=== PATIENT | female | born 1935 | race Caucasian/White ===

== ENCOUNTER → 2017-06-17 | Outpatient (CLI) | payer OTHER ==
[~2017-06-17] MED LIST: DEXAMETHASONE 4 MG/ML VIAL ONE; GLYCOPYRROLATE 0.2 MG/1 ML VIAL ONE; LIDOCAINE 2% 5 ML SDV ONE; ONDANSETRON 4 MG/2 ML VIAL ONE; PHENYLEPHRINE HCL 100 MCG/ML SYR ONE; PROPOFOL 200 MG/20 ML VIAL ONE; ROCURONIUM 50 MG/5 ML VIAL ONE; epHEDrine SULFATE 10 MG/ML SYR ONE; fentaNYL 100 MCG/2 ML INJ ONE
== END ==
LOC: FIMAGING 09:53
PROVIDERS: ATTEND Surgery
DX: E21.0 Primary hyperparathyroidism (principal)
CPT/HCPCS: A9500; J1100; J2370; J2405; J2704; J3010

== ENCOUNTER 2017-06-19 06:31 | Observation (INO) | payer OTHER ==
--- NOTE | 2017-06-17 14:32 | GHP ---
[f rep st] PREOP HISTORY AND PHYSICAL DATE OF ADMISSION: 06/19/2017 HISTORY OF PRESENT ILLNESS: The patient is an 82-year-old female, who has been referred to us by her primary care provider and cane burner for parathyroidectomy for primary hyperparathyroidism. The patient has been hypercalcemic, measured at 11.1 on 05/07/2017. Labs at the same time showed a parathyroid hormone of 82 and a vitamin D level within normal range at 31.7. She has osteoporosis and also declining renal function in the face of hypercalcemia. She is not thought to have secondary hyperparathyroidism. She has yet to get a nuclear medicine sestamibi parathyroid scan. Per report, she has had some abnormal labs for about 2 years now. The patient does report recurring nocturia but denies renal lithiasis. She reports some muscle weakness and is now using a walker. She does have osteoporosis and luckily a recent fall with no fracture. She denies abdominal discomfort and confusion. HPI includes nighttime urination, muscle weakness. PAST MEDICAL HISTORY: Primary hyperparathyroidism as described above. Also, dementia, osteoporosis, hypertension, hyperlipidemia, and falls. MEDICATIONS: Amlodipine, gabapentin, pramipexole, denosumab, donepezil, Percocet as needed, and iron. ALLERGIES: Latex. SOCIAL HISTORY: Patient is . She is a nondrinker and nonsmoker. She is retired and has 4 adult children. REVIEW OF SYSTEMS: 10-point review of systems is done. Please see HPI. PHYSICAL EXAMINATION: GENERAL APPEARANCE: An 82-year-old female, alert and oriented x3 and in no acute distress. HEENT: Normocephalic, atraumatic. Pupils equal and round. NECK: Supple. No obvious lymphadenopathy or neck masses. No thyromegaly. CHEST: Clear to auscultation bilaterally. CARDIAC: Regular rate and rhythm. ABDOMEN: Soft, nontender. EXTREMITIES: Warm and dry. IMPRESSION: This is an 82-year-old female with hypercalcemia, elevated PTH, osteoporosis, and renal decline, thought to have primary hyperparathyroidism. PLAN: To proceed with parathyroidectomy. She will also be getting a nuclear medicine sestamibi parathyroid scan prior to her surgery. Even if this is inconclusive, we will still plan to proceed with surgery as she has enough to indicate primary hyperparathyroidism. If it is positive, it will help with the surgery. Risks and options have been discussed including, but not limited to, bleeding, infection, injury to nerve, hoarse or loss of voice, failure to find adenoma, hypocalcemia, hypoparathyroidism, thyroid injury, damage to surrounding structures, ectopic parathyroid, and other problems, and she requests to proceed. /[id number]/MODL MTDD
[2017-06-19] MEDS ORDERED: ceFAZolin 2 GM/DEXTROSE 100 ML IV ONE (06:55)
[2017-06-19] MEDS ORDERED: LR 1,000 ML IV ONE (06:56)
[2017-06-19] MEDS ORDERED: LIDOCAINE 1% 2 ML INJ ID PRN (06:56)
[2017-06-19] MEDS ORDERED: LIDOCAINE 1% 2 ML INJ ONE (07:02)
[2017-06-19] MEDS ORDERED: BUPIVACAINE/EPI 0.5% 30 ML SDV ONE ×3 (07:24→11:09)
[2017-06-19] MEDS ORDERED: THROMBIN (BOVINE) 5,000 UNIT VIAL TP ONE (07:24)
[2017-06-19] MEDS ORDERED: BACITRACIN ZINC 14.2 GM OINTTUBE TP ONE (07:24)
--- NOTE | 2017-06-19 07:29 | PDHPUP ---
History & Physical Update H&P update statement: This history and physical update is based on an assessment of the patient which was completed after admission or registration (within 24 hours), but prior to the surgery/procedure. H&P update: H&P reviewed & patient examined, no change in patient's condition since H&P completed
--- NOTE | 2017-06-19 07:35 | CPEKG ---
Heart Rate: 50 RR Interval: 1200 P-R Interval: 224 QRSD Interval: 136 QT Interval: 516 QTC Interval: 471 P [place]: 63 QRS [place]: 14 T Wave [place]: 82 EKG Severity - ABNORMAL ECG - EKG Impression: SINUS RHYTHM EKG Impression: FIRST DEGREE AV BLOCK EKG Impression: LEFT BUNDLE BRANCH BLOCK Electronically Signed By: Pan Taylor 22-Jun-2017 08:24:28
--- NOTE | 2017-06-19 10:05 | PDANEPAE ---
ANE Past Medical History - Cardiovascular History Hx Hypertension: Yes Hx Arrhythmias: No Hx Chest Pain: No Hx Coronary Artery / Peripheral Vascular Disease: No Hx CHF / Valvular Disease: No Hx Palpitations: No - Pulmonary History Hx COPD: No Hx Asthma/Reactive Airway Disease: No Hx Recent Upper Respiratory Infection: No Hx Oxygen in Use at Home: No Hx Sleep Apnea: No Sleep Apnea Screening Result - Last Documented: Negative - Neurologic History Hx Cerebrovascular Accident: No Hx Seizures: No Hx Dementia: Yes Neurologic History Comment: ALZHEIMERS - Endocrine History Hx Diabetes: No Obesity: no Endocrine History Comment: HYPERPARATHYROIDISM - Renal History Hx Renal Disorders: Yes Renal History Comment: DECREASED KIDNEY FUNCTION - Liver History Hx Hepatic Disorders: No - Neurological & Psychiatric Hx Hx Neurological and Psychiatric Disorders: No - Cancer History Hx Cancer: No - Congenital Disorder History Hx Congenital Disorders: No - GI History GERD: no Hx Gastrointestinal Disorders: Yes Gastrointestinal History Comment: IBS - Other Health History Other Health History: MACULAR DEGENERATION - Surgical History Prior Surgeries: BREAST IMPLANTS 40 YEARS AGO ANE Review of Systems - Exercise capacity METS (RN): 2 METS ANE Patient History - Allergies Allergies/Adverse Reactions: latex Allergy (Mild, Verified 06/18/17 17:09) - Home Medications Home Medications: Aricept DAILY 06/18/17 [Last Taken 06/18/17] Denosumab 06/18/17 [Last Taken 06/18/17] GABAPENTIN BID 06/18/17 [Last Taken 06/18/17] Lisinopril DAILY 06/18/17 [Last Taken 06/18/17] Percocet 5-325 mg Tablet PRN 06/18/17 [Last Taken 06/18/17] Pramipexole Di-HCl PRN 06/18/17 [Last Taken 06/14/17] amLODIPine BESYLATE PO DAILY 06/18/17 [Last Taken 06/18/17] - NPO status NPO Since - Liquids (Date): 06/18/17 NPO Since - Liquids (Time): 22:00 NPO Since - Solids (Date): 06/18/17 NPO Since - Solids (Time): 22:00 - Anes Hx Anes Hx: no prior problems - Smoking Hx Smoking Status: Former smoker - Alcohol Use Alcohol Use: None - Family Anes Hx Family Anes Hx: neg - N/A Family Hx Anesthesia Complications: NEG ANE Labs/Vital Signs - Vital Signs Blood Pressure: 175/81 Heart Rate: 54 Respiratory Rate: 16 O2 Sat (%): 95 Height: 167.64 cm Weight: 56.699 kg ANE Physical Exam - Airway Neck exam: decreased ROM Mallampati Score: Class 2 Mouth exam: dentures - Pulmonary Pulmonary: no respiratory distress, no rales or rhonchi, clear to auscultation - Cardiovascular Cardiovascular: regular rate and rhythym - ASA Status ASA Status: III (b/l carotid bruit (R>L)) ANE Anesthesia Plan Anesthesia Plan: general endotracheal anesthesia
[2017-06-19 10:43] LABS: ANION GAP 11 mEq/L (8-16); CALCIUM 11.3 mg/dL (8.5-10.4); CARBON DIOXIDE 23 mEq/l (22-31); CHLORIDE 102 mEq/L (97-110); CREATININE 1.7 mg/dL (0.6-1.0); GLOMERULAR FILTRATION RATE 29; GLUCOSE 87 mg/dL (70-100); POTASSIUM 4.6 mEq/L (3.5-5.2); SODIUM 136 mEq/L (134-144)
[2017-06-19] MEDS ORDERED: MEPERIDINE 25 MG/ML SYR IVP PRN (12:32)
[2017-06-19] MEDS ORDERED: ACETAMINOPHEN 500 MG TAB PO PRN (12:32)
[2017-06-19] MEDS ORDERED: OXYCODONE/APAP 5/325 TAB PO PRN (12:32)
[2017-06-19] MEDS ORDERED: ONDANSETRON 4 MG/2 ML VIAL IVP PRN ×2 (12:32→14:39)
[2017-06-19] MEDS ORDERED: D5W LR 500 ML IV PRN (12:32)
[2017-06-19] MEDS ORDERED: HYDROCODONE/APAP 5/325 TAB PO PRN (12:32)
[2017-06-19] MEDS ORDERED: NALOXONE HCL 0.4 MG/ML INJ IVP PRN (12:32)
[2017-06-19] MEDS ORDERED: DIAZEPAM 10 MG/2 ML SYR IVP PRN (14:24)
--- NOTE | 2017-06-19 14:27 | POSTANESTH ---
Post Anesthetic Evaluation Cardiovascular Status: Normal, Stable Respiratory Status: Normal, Stable Level of Consciousness/Mental Status: Can Participate in Eval, Other, See Comment Pain Control: Adequate, Prn Tx Ordered Nausea/Vomiting Control: Adequate, Prn Tx Ordered Complications Possibly Related to Anesthesia: None Noted (baseline dementia difficult to accurately assess mental status)
[2017-06-19] MEDS ORDERED: DIAZEPAM 10 MG/2 ML SYR ONE (14:32)
--- NOTE | 2017-06-19 14:38 | POSTOPPROG ---
Post Op Note Date of Operation: 06/19/17 Surgeon: Magdy Rosa Sander And Buffer: jun Anesthesiologist: alexandra Anesthesia: GET(General Endotracheal) Pre-op Diagnosis: hyperparathyroidism Post-op Diagnosis: same Indication: hypercalcemia/ crf/ stones Procedure: parathyroidectomy with removal adenoma and thyroid bx Findings: adenoma on rt asosiated with thymic horn 110gms/ pth doen to 15 from 117 Inf/Abcess present in the surg proc area at time of surgery?: No Depth: Organ Space EBL: Minimal Complications: 0 Specimen(s): 2 parathyroid masses/ thyroid nodule left lobe
[2017-06-19] MEDS ORDERED: HYDROmorphONE/DILAUDID 1 MG/ML SYR IVP PRN (14:39)
[2017-06-19] MEDS ORDERED: fentaNYL 100 MCG/2 ML INJ ONE (14:42)
[2017-06-19] MEDS: fentaNYL 100 MCG/2 ML INJ IVP PRN ×2 (14:43→14:48)
[2017-06-19] MEDS ORDERED: HYDROCODONE/APAP 5/325 TAB ONE (14:48)
[2017-06-19] MEDS: D5W 1/2 NS W/ 20 KCl/L 1,000 ML IV SCH (17:12)
[2017-06-19] MEDS: HYDROCODONE/APAP 5/325 TAB PO PRN ×2 (19:21→23:33)
[2017-06-20] MEDS: HYDROCODONE/APAP 5/325 TAB PO PRN ×2 (03:48→11:06)
[2017-06-20] MEDS: D5W 1/2 NS W/ 20 KCl/L 1,000 ML IV SCH (03:53)
--- NOTE | 2017-06-20 10:52 | PDDCSUM ---
Discharge Summary Discharge Summary: DISCHARGE SUMMARY Date of Admission June 19 Date of Discharge June 20 DISCHARGE DIAGNOSES -hyperparathyroidism status post parathyroidectomy HOSPITAL COURSE The patient was admitted after undergoing uneventful parathyroidectomy for adenoma. She was taken 1st to the postanesthesia unit and then to the general medical floor. Her pain is well controlled, she was tolerating a regular diet and was discharged home in stable condition on the morning of the DISCHARGE MEDICATIONS All home medications were reconciled in restarted, [place] was added as needed for pain DISPOSITION Home FOLLOW UP Follow up with Dr. Rosa in the office in 10-14 days for a general post- operative visit
[2017-06-20 11:31] VITALS: BP 138/49; PULSE 59; RESP 20; TEMP 97.7; O2SAT 93
--- NOTE | 2017-06-20 11:54 | PDIAF ---
- Diagnosis Diagnosis: hyperparathyroidism Code Status: Full Code - Medication Management Discharge Medications: Medications to Continue on Transfer Amlodipine Besylate 10 mg PO DAILY 06/19/17 [Last Taken Unknown] Donepezil HCl 10 mg PO HS 06/19/17 [Last Taken Unknown] Gabapentin 100 mg PO BID 06/19/17 [Last Taken Unknown] Herbals/Supplements -Info Only 1 ea PO DAILY 06/19/17 [Last Taken Unknown] Lisinopril 40 mg PO DAILY 06/19/17 [Last Taken Unknown] Pramipexole Di-HCl [Pramipexole Dihydrochloride] 0.25 mg PO HS PRN 06/19/17 [ Last Taken Unknown] oxyCODONE HCL/ACETAMINOPHEN [Percocet 10-325 mg Tablet] 1 each PO QID PRN [Last Taken Unknown] Hydrocodone/APAP 5/325 [Lowgap 5/325 (*)] 1 - 2 tab PO Q4 PRN #12 tab 06/20/17 [ Last Taken Unknown] Discharge Medications: Refer to the Discharge Home Medication list for PRN reason. - Orders Services needed: Physical Therapy, Occupational Therapy Diet Recommendation: no restrictions on diet Diet Texture: Regular Texture Diet - Follow Up Care Current Providers and Referrals: Marilou Pedraza MD [Primary Care Provider] - Magdy Rosa MD [Medical Doctor] - follow up in 10 days
== END 2017-06-20 13:41 | disposition home or self-care (01) ==
LOC: F3N 06:31 → F3E 15:16
PROVIDERS: ADMIT Surgery; ATTEND Surgery
PROC: 0GBR0ZX Excision of Parathyroid Gland, Open Approach, Diagnostic (ICD-10-PCS; principal; 2017-06-19 08:30)
PROC: 0GBG0ZX Excision of Left Thyroid Gland Lobe, Open Approach, Diagnostic (ICD-10-PCS; principal; 2017-06-19 08:30)
DX: E21.3 Hyperparathyroidism, unspecified (principal); D35.1 Benign neoplasm of parathyroid gland; D34 Benign neoplasm of thyroid gland; M81.0 Age-related osteoporosis without current pathological fracture; F03.90 Unspecified dementia, unspecified severity, without behavioral disturbance, psychotic disturbance, mood disturbance, and anxiety; I10 Essential (primary) hypertension; E78.5 Hyperlipidemia, unspecified; R29.6 Repeated falls; N28.9 Disorder of kidney and ureter, unspecified; I44.7 Left bundle-branch block, unspecified; Z87.442 Personal history of urinary calculi
CPT/HCPCS: 60200; 60500; 93005; 97161; G0378; G8978; G8979; G8980; J0690; J3010

== ENCOUNTER → 2018-03-26 | Outpatient (CLI) | payer OTHER ==
[~2018-03-26] MED LIST changes: -DEXAMETHASONE 4 MG/ML VIAL ONE; -GLYCOPYRROLATE 0.2 MG/1 ML VIAL ONE; +IOPAMIDOL (ISOVUE-300) 100 ML BTL ONE; -LIDOCAINE 2% 5 ML SDV ONE; -ONDANSETRON 4 MG/2 ML VIAL ONE; -PHENYLEPHRINE HCL 100 MCG/ML SYR ONE; -PROPOFOL 200 MG/20 ML VIAL ONE; -ROCURONIUM 50 MG/5 ML VIAL ONE; -epHEDrine SULFATE 10 MG/ML SYR ONE; -fentaNYL 100 MCG/2 ML INJ ONE
== END ==
LOC: CIMAGING 11:25
PROVIDERS: ATTEND Internal Medicine
DX: N28.89 Other specified disorders of kidney and ureter (principal); Z53.09 Procedure and treatment not carried out because of other contraindication
CPT/HCPCS: 74170-PO; Q9967

== ENCOUNTER 2018-04-23 10:02 | Day surgery (SDC) | payer OTHER ==
[2018-04-23] MEDS ORDERED: hydrALAZINE 20 MG/ML VIAL IVP PRN (10:13)
[2018-04-23] MEDS ORDERED: MEPERIDINE 25 MG/ML SYR IVP PRN (10:13)
[2018-04-23] MEDS ORDERED: MIDAZOLAM 2 MG/2 ML VIAL IVP PRN (10:13)
[2018-04-23] MEDS ORDERED: NALOXONE HCL 0.4 MG/ML INJ IVP PRN (10:13)
[2018-04-23] MEDS ORDERED: fentaNYL 100 MCG/2 ML INJ IVP PRN (10:13)
[2018-04-23] MEDS ORDERED: GLUCAGON HCL 1 MG VIAL IVP PRN (10:13)
[2018-04-23] MEDS ORDERED: FLUMAZENIL 0.5 MG/5 ML MDV IVP PRN (10:13)
[2018-04-23] MEDS ORDERED: ALTEPLASE 2 MG VIAL IVP PRN (10:13)
[2018-04-23] MEDS ORDERED: HEPARIN 10,000 UNIT/10 ML MDV (1,000 UNIT/ML) IVP PRN (10:13)
[2018-04-23] MEDS ORDERED: PROTAMINE SULFATE 50 MG/5 ML VIAL IVP PRN (10:13)
[2018-04-23] MEDS ORDERED: NS 1,000 ML IV SCH (10:15)
--- NOTE | 2018-04-23 10:56 | PDPROPOC ---
Sedation Plan of Care Sedation Plan of Care: vital signs stable, mental status noted, patient educated of risks, benefits, alternatives, patient can tolerate sedation ASA Classification: ASA 3 Planned drugs: fentanyl, midazolam Mallampati Score: Class 2 Mallampati Reference Image: Patient passed 3-3-2 rule?: Yes
--- NOTE | 2018-04-23 10:59 | PDGENHP ---
History & Physical Chief Complaint: RT RENAL MASS History of Present Illness: MASS WAS INCIDENTALLY FOUND DURING WORK UP FOR VOMITTING. Pertinent Past, Social, Family History: SURPORTIVE FAMILY WITH DAUGHTER SIGNING CONSENTS. NONSMOKER. Relevant Physical Exam: CHATTY. IN NO DISCOMFORT. Cardiorespiratory Assessment: RRR, CTA
[2018-04-23 11:17] LABS: PLATELET COUNT 468 10^3/uL (150-400)
[2018-04-23 11:26] LABS: PROTIME(PATIENT) 13.4 SEC (12.0-15.0)
[2018-04-23] MEDS ORDERED: LIDOCAINE 1% 300 MG/30 ML SDV ONE (11:26)
[2018-04-23] MEDS ORDERED: IOPAMIDOL (ISOVUE-300) 100 ML BTL ONE (11:46)
[2018-04-23] MEDS ORDERED: ACETAMINOPHEN 325 MG TAB PO PRN (12:18)
[2018-04-23] MEDS ORDERED: OXYCODONE/APAP 5/325 TAB PO PRN (12:18)
[2018-04-23] MEDS ORDERED: ONDANSETRON 4 MG/2 ML VIAL IVP PRN (12:18)
--- NOTE | 2018-04-23 12:18 | PDRADPN ---
Radiology Procedure Note Date of Procedure: 04/23/18 Radiologist: Meena Zamudio Anesthesia: IV Sedation Pre-op Diagnosis: rt renal mass Post-op Diagnosis: same Indication: needs tissue diagnosis Procedure: CT guided biopsy and faducial placement Finding(s): samples obtained; faducial deployed towards medial end of mass. Inf/Abcess present in the surg proc area at time of surgery?: No
[2018-04-23 17:11] VITALS: BP 139/71
== END 2018-04-23 16:46 | disposition home or self-care (01) ==
LOC: FIMAGING 10:02
PROVIDERS: ATTEND Specialist
PROC: 0TB03ZX Excision of Right Kidney, Percutaneous Approach, Diagnostic (ICD-10-PCS; principal; 2018-04-23 12:26)
PROC: 0TH53YZ Insertion of Other Device into Kidney, Percutaneous Approach (ICD-10-PCS; principal; 2018-04-23 12:26)
DX: E78.00 Pure hypercholesterolemia, unspecified (principal); I10 Essential (primary) hypertension; G30.9 Alzheimer's disease, unspecified; F02.80 Dementia in other diseases classified elsewhere, unspecified severity, without behavioral disturbance, psychotic disturbance, mood disturbance, and anxiety
CPT/HCPCS: 88184-90; 88185-91; J2250; J2310; J3010; Q9967

== ENCOUNTER 2018-08-24 16:22 | Observation (INO) | payer OTHER ==
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
[2018-08-24] MEDS ORDERED: NS 1,000 ML IV ONE ×2 (16:51→17:59)
[2018-08-24] MEDS ORDERED: fentaNYL 100 MCG/2 ML INJ IVP ONE (16:51)
--- NOTE | 2018-08-24 16:55 | CPEKG ---
Test Reason : OPEN Blood Pressure : / mmHG Vent. Rate : 079 BPM Atrial Rate : 079 BPM P-R Int : 208 ms QRS Dur : 133 ms QT Int : 450 ms P-R-T Axes : 064 019 087 degrees QTc Int : 517 ms Sinus rhythm Left bundle branch block Confirmed by Malik Freitas ([id number]) on 08/24/2018 4:54:37 PM Referred By: Confirmed By:Malik Freitas
[2018-08-24 16:59] LABS: PLATELET COUNT 707 10^3/uL (150-400)
[2018-08-24] MEDS ORDERED: Herbals/Supplements -Info Only PO PRN (18:39)
[2018-08-24] MEDS ORDERED: PRAMIPEXOLE 0.125 MG TAB PO PRN (18:39)
[2018-08-24] MEDS ORDERED: ACETAMINOPHEN 325 MG TAB PO PRN (18:41)
[2018-08-24] MEDS ORDERED: ONDANSETRON DISINTEGRATING 4 MG TAB PO PRN (18:41)
[2018-08-24] MEDS ORDERED: PROMETHAZINE HCL 25 MG/ML INJ IVP PRN (18:41)
[2018-08-24] MEDS ORDERED: ONDANSETRON 4 MG/2 ML VIAL IVP PRN (18:41)
--- NOTE | 2018-08-24 19:48 | GHP ---
DATE OF ADMISSION: 08/24/2018 This is an 83-year-old female with history of chronic pain on continuous narcotics, as well as reg ia and hypertension, who has had some recent GI complaints. She was admitted to [facility] with some abdominal pain and she had a CT scan at that time. Her daughter believes it showed duo denitis. She has also had intermittent diarrhea. She has not had fever or chills. Has had poor p.o . intake. She comes in today complaining of abdominal pain. She denies vomiting. She has had some nausea. In speaking with her daughter, she suspects that her mother has unfettered access to NSAIDs and may be taking a fair amount of ibuprofen. She has not had melena or bright red blood per rectum. The patient does have some dementia and does not manage her own medicines. She lives in [facility] w ith her . She does not smoke cigarettes or drink alcohol. She relocated to the [place] area a number of years ago to be near her daughter's family. REVIEW OF SYSTEMS: Complete 10-point review of systems conducted, negative except as noted in the HP I. ALLERGIES: Latex. MEDICATIONS: Iron, lisinopril, omeprazole, amlodipine, calcium carbonate with vitamin D, donepezil, gabapentin, Percocet and pramipexole. SOCIAL HISTORY: No tobacco, no alcohol. FAMILY HISTORY: Parents . PHYSICAL EXAMINATION: VITAL SIGNS: Temperature 37, blood pressure 173/91, pulse 81, breathing 18 janeth es a minute, 97% on room air. GENERAL: No acute distress. HEENT: Sclerae anicteric. Oropharynx clear . Mucous membranes moist. NECK: Supple without lymphadenopathy or JVD. LUNGS: Clear to auscultation bilaterally. HEART: S1, S2. ABDOMEN: Soft, nontender, nondistended. There is no rebound or guardin g. LOWER EXTREMITIES: Without edema. Calves nontender. SKIN: Without rash. NEUROLOGIC: Exam is non focal. LABORATORY STUDIES: White count 16, hematocrit 38, MCV 86, platelets 707,000. Sodium 136, potassium 4.2, chloride 101, bicarb 18, BUN 19, creatinine 1.3. Baseline is about 1.3. Glucose 154. LFTs no rmal. Lipase 309. CT scan of the abdomen, images reviewed and interpreted by me shows duodenitis, l arge hiatal hernia. There is also a hypodense nodule in the right renal apex. I discussed the case with Dr. Robin Fuentes. EKG shows sinus rhythm, left bundle branch block pattern . Left bundle branch block pattern is not new. ASSESSMENT/PLAN: An 83-year-old female with abdominal pain, duodenitis. 1. Duodenitis. I suspect this is from surreptitious NSAID use given the chronic pain. I put her on a twice daily IV PPI. Gastroenterology will see her in the morning. I have made her n.p.o. past ak dnight for possible upper endoscopy. 2. There are no signs of acute bleeding at this time. I have also written for some simethicone p.r. n. 3. Diarrhea. It appears to be of a chronic nature. I have written for a GI pathogen panel to rule out enteric pathogens such as Clostridium difficile colitis. I have a low suspicion for this however . She may benefit from colonoscopy. I will leave that to the discretion of the multicultural internship. 4. Hypertension. She is markedly hypertensive in the emergency department to 202/101. We will foll ow. We will give her Norvasc tonight. 5. Chronic pain. She takes a number of Percocet daily. We will continue for now. I will not write her for IV narcotics. 6. Nausea. Continue IV nausea medicine. 7. Disposition: Inpatient status. Code status full at this time. /[id number]/MODL
[2018-08-24] MEDS: NS 1,000 ML IV SCH (19:51)
[2018-08-24] MEDS: OXYCODONE/APAP 5/325 TAB PO PRN (20:07)
[2018-08-24] MEDS: oxyCODONE IR 5 MG TAB PO PRN (20:07)
[2018-08-24] MEDS: PANTOPRAZOLE SODIUM 40 MG VIAL IVP SCH (20:07)
[2018-08-24] MEDS: SIMETHICONE 80 MG TAB CHEW PO SCH ×3 (20:07→20:12)
[2018-08-24] MEDS: DONEPEZIL HCL 5 MG TAB PO SCH (20:08)
[2018-08-24] MEDS ORDERED: ZOLPIDEM TARTRATE 5 MG TAB PO ONE (21:00)
[2018-08-24] MEDS: GABAPENTIN 100 MG CAP PO SCH (21:20)
[2018-08-25] MEDS: NS 1,000 ML IV SCH ×2 (05:17→18:03)
[2018-08-25 05:37] LABS: PLATELET COUNT 512 10^3/uL (150-400)
[2018-08-25] MEDS: oxyCODONE IR 5 MG TAB PO PRN (08:08)
[2018-08-25] MEDS: CHOLECALCIFEROL VIT D3 1,000 UNITS TAB PO SCH (08:10)
[2018-08-25] MEDS: OXYCODONE/APAP 5/325 TAB PO PRN (08:10)
[2018-08-25] MEDS: SIMETHICONE 80 MG TAB CHEW PO SCH ×4 (08:13→21:03)
[2018-08-25] MEDS: GABAPENTIN 100 MG CAP PO SCH ×3 (08:13→21:04)
[2018-08-25] MEDS: PANTOPRAZOLE SODIUM 40 MG VIAL IVP SCH ×3 (08:13→21:04)
[2018-08-25] MEDS: CALCIUM CARB W/VIT D 500 MG TAB PO SCH (08:13)
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
--- NOTE | 2018-08-25 11:31 | ASMTCMCOM ---
CM Note CM Note Notes: Spoke with pt, pt's RN and dtr in the room. Pt lives independently with , and per daughter the home is well set up for aging in place safely. Pt admitted for abd pain and diarrhea, to have EGD today. OT recommending home independently. PT still to evaluate. Likely home independently. CM to follow. D/C Plan: Home independently. Date Signed: 08/25/2018 11:31 AM Electronically Signed By:Erika Jackson
[2018-08-25] MEDS ORDERED: LR 1,000 ML IV ONE (13:22)
[2018-08-25] MEDS ORDERED: PROPOFOL 200 MG/20 ML VIAL ONE ×2 (13:49→13:50)
--- NOTE | 2018-08-25 14:00 | PDANEPAE ---
ANE Past Medical History - Cardiovascular History Hx Hypertension: Yes Hx Arrhythmias: No Hx Chest Pain: No Hx Coronary Artery / Peripheral Vascular Disease: No Hx CHF / Valvular Disease: No Hx Palpitations: No Cardiovascular History Comment: heart murmur - Pulmonary History Hx COPD: No Hx Asthma/Reactive Airway Disease: No Hx Recent Upper Respiratory Infection: No Hx Oxygen in Use at Home: No Hx Sleep Apnea: No Sleep Apnea Screening Result - Last Documented: Negative - Neurologic History Hx Cerebrovascular Accident: No Hx Seizures: No Hx Dementia: Yes Neurologic History Comment: ALZHEIMERS - Endocrine History Hx Diabetes: No Endocrine History Comment: HYPERPARATHYROIDISM - Renal History Hx Renal Disorders: Yes Renal History Comment: DECREASED KIDNEY FUNCTION - Liver History Hx Hepatic Disorders: No - Neurological & Psychiatric Hx Hx Neurological and Psychiatric Disorders: No - Cancer History Hx Cancer: No - Congenital Disorder History Hx Congenital Disorders: No - GI History Hx Gastrointestinal Disorders: Yes Gastrointestinal History Comment: IBS - Other Health History Other Health History: MACULAR DEGENERATION. scoliosis. degerative disc disease - Chronic Pain History Chronic Pain: Yes (back) - Surgical History Prior Surgeries: BREAST IMPLANTS 40 YEARS AGO;. T&A; mulitple teeth extraction ; thyroidectomy; cataract surgery b/l &01/2018 ANE Review of Systems Review of Systems: ANE Patient History - Allergies Allergies/Adverse Reactions: latex Allergy (Mild, Verified 04/20/18 14:13) - Home Medications Home Medications: Calcium Carbonate/Vitamin D3 [CALCIUM 600 + VIT D TABLET] 1 each PO DAILY [Last Taken 08/24/18] Cholecalciferol Vit D3 [Vitamin D3 (*)] 1,000 units PO DAILY 08/24/18 [Last Taken 08/24/18] Donepezil HCl 10 mg PO HS 08/24/18 [Last Taken 08/23/18] Ferrous Sulfate [Ferrous Sulf 325 MG (*)] 325 mg PO TID 08/24/18 [Last Taken am dose only] Gabapentin [Neurontin 100 MG (*)] 100 mg PO TID 08/24/18 [Last Taken 08/24/18 am dose only] Herbals/Supplements -Info Only 1 ea PO QID PRN 08/24/18 [Last Taken Unknown] Lisinopril [Zestril 40 mg (*)] 40 mg PO DAILY 08/24/18 [Last Taken 08/24/18] Omeprazole 20 mg PO DAILY 08/24/18 [Last Taken 08/24/18] Pramipexole Di-HCl [Mirapex 0.125 mg (*)] 0.125 - 0.375 mg PO HS PRN 08/24/18 [ Last Taken Unknown] amLODIPine BESYLATE [Norvasc 10 mg (*)] 10 mg PO DAILY 08/24/18 [Last Taken ] oxyCODONE HCL/ACETAMINOPHEN [Oxycodone-Acetaminophen 10-325] 1 each PO TID PRN 08/24/18 [Last Taken Unknown] - NPO status NPO Since - Liquids (Date): 08/25/18 NPO Since - Liquids (Time): 00:00 NPO Since - Solids (Date): 08/25/18 NPO Since - Solids (Time): 00:00 - Smoking Hx Smoking Status: Never smoked - Family Anes Hx Family Hx Anesthesia Complications: NEG ANE Labs/Vital Signs - Labs Result Diagrams: 08/25/18 04:44 08/25/18 04:44 - Vital Signs Blood Pressure: 147/67 Heart Rate: 55 Respiratory Rate: 16 O2 Sat (%): 95 Height: 165.1 cm Weight: 55.111 kg ANE Physical Exam - Airway Neck exam: FROM Mallampati Score: Class 2 Mouth exam: normal dental/mouth exam - Pulmonary Pulmonary: no respiratory distress - Cardiovascular Cardiovascular: regular rate and rhythym - ASA Status ASA Status: II ANE Anesthesia Plan Anesthesia Plan: GA with mask
--- NOTE | 2018-08-25 14:21 | GIREPORT ---
[facility] Surgical Services - Endoscopy Department Patient Name: Laila Bruno Procedure Date: 08/25/2018 11:30 AM Patient Type: Inpatient Attending MD/ ER Physician: Reyes Ac MD Procedure: Upper GI endoscopy Indications: Epigastric abdominal pain, Nausea with vomiting Providers: Reyes Ac MD Medicines: Propofol per Anesthesia Complications: No immediate complications. Description of Procedure: After obtaining informed consent, the endoscope was passed under direct vision. Throughout the procedure, the patient's blood pressure, pulse, and oxygen saturations were monitored continuously. The Endoscope was intro duced through the mouth, and advanced to the second part of duodenum. The [facility] er GI endoscopy was accomplished without difficulty. The patient tolerated th e procedure well. Findings: One benign-appearing, intrinsic stenosis was found at the gastroesophag eal junction. This stenosis was mildly severe and measured 1.2 cm (inner diameter) x 1 cm (in length). The stenosis was traversed. Biopsies were taken with a cold forceps for histology. The stomach was normal. One partially obstructing non-bleeding cratered duodenal ulcer with no stigmata of bleeding was found in the first portion of the duodenum. Th e ulcer bed is deep with visualization of underlying connective tissue. T he lesion was 15 mm in largest dimension. There is no evidence of perforat ion but the ulcer appears very deep. This area was successfully traversed w ith the endoscope with gentle manipulation. Biopsies were taken with a cold forceps for histology. The second portion of the duodenum was normal. Estimated Blood Loss: Estimated blood loss was minimal. Post Op Diagnosis: - Benign-appearing esophageal stenosis. Biopsied. - Normal stomach. - One partially obstructing, deep and non-bleeding duodenal ulcer with no stigmata of bleeding. NSAID induced etiology. There is no evidence of perforation. Biopsied. - Normal second portion of the duodenum. Recommendation: - Await pathology results. - Give Protonix (pantoprazole): initiate therapy with 80 mg IV bolus, t hen 8 mg/hr IV by continuous infusion. - Mechanical soft diet. - Repeat upper endoscopy in 6 weeks to check healing. - No aspirin, ibuprofen, naproxen, or other non-steroidal anti-inflamma tory drugs. - Refer to a surgeon if her abdominal pain persists or she can not tole rate oral intake. - [facility]. Attending Participation: I personally performed the entire procedure without the assistance of a fellow, resident or surg ical interior design assistant. Reyes Ac MD Reyes Ac MD 08/25/2018 2:20:50 PM This report has been signed electronicallyDavid MD Osorio Number of Addenda: 0 Note Initiated On: 08/25/2018 11:30 AM [email or web address]
--- NOTE | 2018-08-25 14:36 | HOSPPROG ---
Hospitalist Progress Note Assessment/Plan: 83y female with c/o abd pain. First encounter, chart reviewed. #Duodenitis -related to NSAIDS -EGD today, shows ulcer, D/W Dr Ac -DC NSAIDS, pt states she takes for pain. #Chronic narcotic use with conts opiods -D/W daughter -would like to try to titrate off percecet -decrease dose to 5/325 not 10/325 -fu PCP #Restless leg -cont home meds -add magnesium at night -schedule mirapex #Dementia -mild -stable #Diarrhea -resolved #Nausea -resolved #Dispo -likely home in am -will need repeat EGD in 6 weeks -Change to inpt status -needs overnight supportive care -advance diet -discussed home meds with daughter Subjective: Up in chair. C/O some leg discomfort last night. Some nausea. Objective: Vital Signs Temp Pulse Resp BP Pulse Ox 37.2 C 55 L 16 147/67 H 95 08/25/18 13:23 08/25/18 14:00 08/25/18 14:00 08/25/18 14:00 08/25/18 14:00 Laboratory Results 08/25/18 04:44 08/25/18 04:44 08/24/18 08/25/18 08/26/18 05:59 05:59 05:59 Intake Total 1200 Balance 1200 - Physical Exam Constitutional: appears nourished, chronically ill appearing, uncomfortable Eyes: PERRL, anicteric sclera, EOMI Ears, Nose, Mouth, Throat: moist mucous membranes, hearing normal, ears appear normal Cardiovascular: No JVD, No tachycardia, No edema Respiratory: no respiratory distress, no rales or rhonchi, reduced air movement Gastrointestinal: distension, No tenderness, No ascites Skin: warm, normal color, No mottled Musculoskeletal: normal joint ROM, no joint effusions, generalized weakness Neurologic: AAOx3 Psychiatric: not anxious, not encephalopathic, poor judgement, poor memory ICD10 Worksheet Patient Problems: Problems Problem Status Onset Abdominal pain Acute Dehydration Acute Renal mass Acute
--- NOTE | 2018-08-25 14:46 | POSTANESTH ---
Post Anesthetic Evaluation Cardiovascular Status: Normal, Stable Respiratory Status: Normal, Stable Level of Consciousness/Mental Status: Can Participate in Eval Pain Control: Adequate, Prn Tx Ordered Nausea/Vomiting Control: Adequate, Prn Tx Ordered Complications Possibly Related to Anesthesia: None Noted
[2018-08-25] MEDS: PRAMIPEXOLE 0.125 MG TAB PO SCH (18:47)
[2018-08-25] MEDS: MAGNESIUM OXIDE 400 MG TAB PO SCH (21:03)
[2018-08-25] MEDS: DONEPEZIL HCL 5 MG TAB PO SCH (21:04)
[2018-08-26] MEDS: PANTOPRAZOLE SODIUM 40 MG VIAL IVP SCH ×4 (04:13→21:48)
[2018-08-26] MEDS: OXYCODONE/APAP 5/325 TAB PO PRN (04:13)
[2018-08-26] MEDS: NS 1,000 ML IV SCH (04:46)
[2018-08-26] MEDS: PRAMIPEXOLE 0.125 MG TAB PO SCH ×2 (08:11→10:20)
[2018-08-26] MEDS: CALCIUM CARB W/VIT D 500 MG TAB PO SCH (08:18)
[2018-08-26] MEDS: SIMETHICONE 80 MG TAB CHEW PO SCH ×4 (08:18→21:49)
[2018-08-26] MEDS: CHOLECALCIFEROL VIT D3 1,000 UNITS TAB PO SCH (08:18)
[2018-08-26] MEDS: GABAPENTIN 100 MG CAP PO SCH ×3 (08:18→21:49)
--- NOTE | 2018-08-26 11:39 | SOAPPROG ---
[facility] Progress Note Assessment/Plan: Assessment: 1. DU with stricture- maybe NSAID induced 2. N/V 3. Epigastric pain Plan: 1. Advance diet to soft, low residue 2. Continue IV PPI TID for today 3. If tolerates advancing diet then will bridge to po PPI BID 4. Will need repeat EGD to reassess DU and stricture in 8 wks or so. Could consider UGI series as less invasive way to assess healing and patency 5. Avoid all NSAIDs 6. Consider PT/OT consult for safety assessment 08/26/18 11:36 Subjective: CC: Abdominal pain resolved. No further N/V. Tolerating liquid diet Objective: Vital Signs Temp Pulse Resp BP Pulse Ox 37.1 C 51 L 12 122/61 H 96 08/26/18 07:47 08/26/18 07:47 08/26/18 07:47 08/26/18 07:47 08/26/18 07:47 Microbiology 08/25/18 22:10 Gastrointestinal Tract Panel (PCR) - Final Stool No Organism Detected Laboratory Results 08/26/18 04:23 08/25/18 04:44 08/25/18 08/26/18 08/27/18 05:59 05:59 05:59 Intake Total 1200 3729 Output Total 600 Balance 1200 3129 Physical Exam - Physical Exam General Appearance: no apparent distress EENT: normal ENT inspection Respiratory: lungs clear Cardiac/Chest: regular rate, rhythm Abdomen: normal bowel sounds, non-tender, soft, No distended, No guarding, No rebound, No mass, No hepatomegaly, No splenomegaly ICD10 Worksheet Patient Problems: Problems Problem Status Onset Abdominal pain Acute Dehydration Acute Renal mass Acute
--- NOTE | 2018-08-26 14:10 | HOSPPROG ---
Hospitalist Progress Note Assessment/Plan: 83y female with c/o abd pain. First encounter, chart reviewed. #Duodenitis w stricture -related to NSAIDS -EGD shows ulcer -DC NSAIDS, pt states she takes for pain. -cont tid PPI -will need a repeat EGD to reassess DU and stricture in 8 weeks or UGI series ( will have her see GI) #Chronic narcotic use with continuous opioids -D/W daughter -would like to try to titrate off Percocet -decrease dose to 5/325 not 10/325 -fu PCP -consider Cymbalta #Restless leg -cont home meds -add magnesium at night -schedule mirapex #Dementia -Aricept #anemia -follow #Diarrhea -resolved #Nausea -resolved #Plan: monitor overnight and se if she is taking in adequate intake, patient c/ o pain to her legs but nowhere else Subjective: Laila is not very hungry, slowly eating a few bites of eggs and milkshake. Objective: Vital Signs Temp Pulse Resp BP Pulse Ox 36.8 C 73 12 122/61 H 96 08/26/18 12:00 08/26/18 12:00 08/26/18 12:00 08/26/18 12:00 08/26/18 12:00 Microbiology 08/25/18 22:10 Gastrointestinal Tract Panel (PCR) - Final Stool No Organism Detected Laboratory Results 08/26/18 04:23 08/25/18 04:44 08/25/18 08/26/18 08/27/18 05:59 05:59 05:59 Intake Total 1200 3729 Output Total 600 Balance 1200 3129 - Physical Exam Constitutional: no apparent distress, appears nourished, uncomfortable Eyes: PERRL Ears, Nose, Mouth, Throat: hearing normal Cardiovascular: regular rate and rhythym, systolic murmur (soft, noted on left sternal border) Respiratory: no respiratory distress Gastrointestinal: soft, non-tender abdomen Skin: warm Psychiatric: interacting appropriately, poor memory ICD10 Worksheet Patient Problems: Problems Problem Status Onset Abdominal pain Acute Dehydration Acute Renal mass Acute
--- NOTE | 2018-08-26 15:07 | ASMTCMCOM ---
CM Note CM Note Notes: Spoke w/pt's daughter Elizabeth, PT recommends homecare. Dtr states pt has used [facility] in the past, RM sent referral. [facility] can accept and will schedule with dtr. DC Plan: [facility]/ PT Date Signed: 08/26/2018 03:07 PM Electronically Signed By:Radha Wilder RN
[2018-08-26] MEDS: MAGNESIUM OXIDE 400 MG TAB PO SCH (21:48)
[2018-08-26] MEDS: DONEPEZIL HCL 5 MG TAB PO SCH (21:48)
[2018-08-27] MEDS: PANTOPRAZOLE SODIUM 40 MG VIAL IVP SCH ×2 (03:08→09:50)
[2018-08-27] MEDS ORDERED: DULoxetine 30 MG CAP PO SCH (09:30)
--- NOTE | 2018-08-27 09:37 | HOSPPROG ---
Hospitalist Progress Note Assessment/Plan: 83y female with c/o abd pain. #Duodenitis w stricture -related to NSAIDS -EGD shows ulcer -DC NSAIDS, pt states she takes for pain. -cont tid PPI -will need a repeat EGD to reassess DU and stricture in 8 weeks or UGI series ( will have her see GI) #Chronic narcotic use with continuous opioids -D/W daughter -would like to try to titrate off Percocet -decrease dose to 5/325 not 10/325 -fu PCP -started Cymbalta (reviewed w pharmacy and no contraindication w her dementia) #Restless leg -cont home meds -add magnesium at night -schedule mirapex #Dementia -Aricept #anemia -follow #Diarrhea -resolved #Nausea -resolved #Plan: dc later today. She is eating breakfast now and will see if she can take adequate intake Subjective: Laila said she is feeling fine, eating slowly. Objective: Vital Signs Temp Pulse Resp BP Pulse Ox 37.0 C 56 L 16 123/79 H 96 08/27/18 07:54 08/27/18 07:54 08/27/18 07:54 08/27/18 07:54 08/27/18 07:54 Microbiology 08/25/18 22:10 Gastrointestinal Tract Panel (PCR) - Final Stool No Organism Detected Laboratory Results 08/27/18 04:17 08/27/18 04:17 08/26/18 08/27/18 08/28/18 05:59 05:59 05:59 Intake Total 3729 100 Output Total 600 Balance 3129 100 - Physical Exam Constitutional: no apparent distress, appears nourished, not in pain Eyes: PERRL Ears, Nose, Mouth, Throat: hard of hearing Respiratory: no respiratory distress Skin: warm Musculoskeletal: generalized weakness Neurologic: sensation intact bilaterally Psychiatric: interacting appropriately, poor memory ICD10 Worksheet Patient Problems: Problems Problem Status Onset Abdominal pain Acute Dehydration Acute Renal mass Acute
[2018-08-27] MEDS: CALCIUM CARB W/VIT D 500 MG TAB PO SCH (09:46)
[2018-08-27] MEDS: GABAPENTIN 100 MG CAP PO SCH (09:46)
[2018-08-27] MEDS: SIMETHICONE 80 MG TAB CHEW PO SCH ×2 (09:46→13:26)
[2018-08-27] MEDS: CHOLECALCIFEROL VIT D3 1,000 UNITS TAB PO SCH (09:46)
[2018-08-27] MEDS ORDERED: PRAMIPEXOLE 0.125 MG TAB PO SCH (11:00)
[2018-08-27 11:21] VITALS: BP 146/65
[2018-08-27] MEDS: PRAMIPEXOLE 0.125 MG TAB PO SCH (11:30)
--- NOTE | 2018-08-27 11:52 | PDIAF ---
- Diagnosis Diagnosis: duodenitis w stricture, chronic pain Code Status: Full Code - Medication Management Discharge Medications: electronically signed and located in the Home Medication List. PICC Care - Routine: N/A - Orders Services needed: Home Care, Registered Nurse, Physical Therapy Home Care Face to Face: I certify that this patient was under my care and that I had the required [id number] encounter meeting the encounter requirements on the discharge day. My findings support the fact that the patient is homebound as defined in Home Care Face to Face Continued: CMS Chapter 7 Medicare Benefits Manual 30.1.1 , The condition of the patient is such that there exists a normal inability to leave home and consequently, leaving home would require a considerable and taxing effort. Diet Recommendation: low fiber Diet Texture: Regular Texture Diet Additional Instructions: f/u with Dr Ac in 8 weeks for f/u care; Laila may need another EGD or upper GI series to be sure resolution of your ulcer take Protonix bid x 2 months and then daily indefinitely no NSAIDS (this include ibuprofen, Aleve and aspirin) a script for Cymbalta was ordered for a month to see if this helps Laial w her pain-refill w Dr Pedraza cut the Percocet dose in half (she has done well w the lower dose during her hospital stay) she can take up to 3 grams of Tylenol/ day (include what she gets w the Percocet ) If Laila has persistent diarrhea, can try Imodium, if ongoing- see her PCP for labs she has some ongoing anemia-this needs to be f/u with her PCP-see in the next 1- 2 weeks her scripts were filled here in the [facility]'s - Follow Up Care Current Providers and Referrals: Dipti Liang MD [Primary Care Provider] - As per Instructions Reyes Ac MD [Medical Doctor] -
--- NOTE | 2018-08-27 11:57 | ASMTLACE ---
LACE Length of stay for Answers: 3 days current admission Acuity / Level of Answers: Yes Care: Did the patient have an inpatient admission? Comorbidities - select Answers: Dementia all that apply Opioid dependence / Chronic pain Other Notes: HTN; HLD # of Emergency department Answers: 1-2 visits in the last 6 months Score: 15 Date Signed: 08/27/2018 11:56 AM Electronically Signed By:Radha Wilder RN
--- NOTE | 2018-08-27 12:12 | ASMTDCNOTE ---
Case Management Discharge Discharge Order Complete? Answers: Yes Patient to Obtain Answers: Independently Medications Transportation Arranged Answers: Family/Friends Faxed Final Orders Answers: Yes Agency/Facility Transfer Answers: Yes Report Printed & Faxed to Receiving Agency Family Notified Answers: Yes Discharge Comments Notes: D/w [facility], final orders faxed. [facility] notified, scheduling to go through patient's daughter. Date Signed: 08/27/2018 12:11 PM Electronically Signed By:Radha Wilder RN
--- NOTE | 2018-08-27 14:01 | ASMTCMCOM ---
CM Note CM Note Notes: Spoke with Kassie from [facility], they don't have a RN/PT available until Thursday the . CM spoke with hospitalist who approved a delayed start of care, patient and dtr made aware. DC Plan: Homecare/ [facility] (RN/PT) Date Signed: 08/27/2018 02:00 PM Electronically Signed By:Radha Wilder RN
--- NOTE | 2018-08-27 16:09 | GDS ---
DISCHARGE DIAGNOSES: 1. Duodenitis with a stricture. 2. Chronic narcotic use with continued opioid use. 3. Restless legs syndrome. 4. Dementia. 5. Anemia. 6. Diarrhea. 7. Nausea. CONSULTATION: Dr. Ac. HISTORY: Briefly, the patient is a very sweet 83-year-old woman who has intermittent abdominal pain for a period of time. She has underlying dementia, and she was able to actually give most of her his tory on admission. She was having some pain that was severe, but that kept her from sleeping and has not been able to eat. She had a CT scan performed that showed duodenal thickening and stranding and a very large hiatal hernia. She was seen and evaluated by Dr. Ac and had an upper GI endoscopy p erformed. It showed a normal stomach. She has 1 partially obstructing deep nonbleeding duodenal ulc er with no stigmata of bleeding. It is likely induced by NSAIDs. No evidence of perforation. The r ecommendation was for her to stay on Protonix indefinitely. Today, she has been eating and drinking well. Also, there was concern of ongoing diarrhea, which has improved as of today. She will be disc harged home with home care checking on her. HOSPITAL COURSE: 1. Duodenitis with a stricture. She had an EGD that showed an ulcer. She is not to take NSAIDs any more for pain because of the bleed. She will be on a PPI b.i.d. She will need a repeat EGD to reass ess the stricture in 8 weeks or upper GI series. 2. Chronic narcotic use with continuous opioids. Her Percocet dose was cut in half. She did very w ell with this. In addition, we started her on Cymbalta for pain to see if this will help her long te rm. 3. Restless legs syndrome. Home medication resumed. 4. Dementia, on Aricept. 5. Anemia. To follow up with her PCP. 6. Diarrhea. She had 1 bout last night, none today. 7. Nausea, none further. DISCHARGE CONDITION: Stable. Blood pressure is 146/65, heart rate of 62, respiratory rate of 18. O 2 sats on room air are 94%. Temperature 37.1 Celsius. DISCHARGE MEDICATIONS: Please see the EMR. DISCHARGE INSTRUCTIONS: 1. To follow up with Dr. Ac in 8 weeks for a possible repeat EGD or an upper GI series. 2. Take Protonix twice daily for the next 2 months and then daily indefinitely. 3. No NSAIDs. 4. Trial of Cymbalta for pain. 5. Cut her Percocet dose in half. She can take up to 3 g of Tylenol a day. 6. If she has persistent diarrhea, she can try Imodium and follow up with her primary care provider to make sure that her labs stay stable. 7. Further followup with her PCP in regard to anemia. Greater than 30 minutes discharging and coordinating the patient's care. Copy requested to: Dr. Erika Pedraza /[id number]/MODL
[2018-08-28] MEDS ORDERED: PRAMIPEXOLE 0.125 MG TAB PO SCH (09:00)
--- NOTE | 2018-08-28 10:14 | ASDISCHSUM ---
Discharge Information Plan Status:Home with Home Health Medically Cleared to Leave: Discharge Date:08/27/2018 02:45 PM CM D/C Disposition:Home Health Service ADT D/C Disposition:Home Health Service Projected Discharge Date:08/28/2018 11:00 AM Transportation at D/C:Family Discharge Delay Reason: Follow-Up Date:08/28/2018 11:00 AM Discharge Slot: Final Diagnosis: Placement Information Referral Type:*Home Health Care Services Referral ID:[id number] Provider Name:[facility] [place] Address 1:[address] Address 2: City:[place] Selection Factors: State:[place] Patient Contact Information Contact Name:BIJU Relationship:Daughter Address: Work Phone: [facility]:[place] Alternate Phone: State/Zip Code:[place] Email: Financial Information Financial Class:Medicare Advantage Plans Primary Plan Desc:[facility] Primary Plan Number:[id number] Secondary Plan Desc: Secondary Plan Number: Assessment Information LACE LACE Length of stay for Answers: 3 days current admission Acuity / Level of Answers: Yes Care: Did the patient have an inpatient admission? Comorbidities - select Answers: Dementia all that apply Opioid dependence / Chronic pain Other Notes: HTN; HLD # of Emergency department Answers: 1-2 visits in the last 6 months Score: 15 Date Signed: 08/27/2018 11:56 AM Electronically Signed By:Radha Wilder RN [facility] Progress Note CM Ike BOLIVAR Note Notes: Spoke with pt, pt's RN and dtr in the room. Pt lives independently with , and per daughter the home is well set up for aging in place safely. Pt admitted for abd pain and diarrhea, to have EGD today. OT recommending home independently. PT still to evaluate. Likely home independently. CM to follow. D/C Plan: Home independently. Date Signed: 08/25/2018 11:31 AM Electronically Signed By:Erika Jackson [facility] CM Progress Note CM Note CM Note Notes: Spoke w/pt's daughter Elizabeth, PT recommends homecare. Dtr states pt has used [facility] in the past, RM sent referral. [facility] can accept and will schedule with dtr. DC Plan: [facility]/ PT Date Signed: 08/26/2018 03:07 PM Electronically Signed By:Radha Wilder RN Case Management Discharge Plan Note Case Management Discharge Discharge Order Complete? Answers: Yes Patient to Obtain Answers: Independently Medications Transportation Arranged Answers: Family/Friends Faxed Final Orders Answers: Yes Agency/Facility Transfer Answers: Yes Report Printed & Faxed to Receiving Agency Family Notified Answers: Yes Discharge Comments Notes: D/w [employer], final orders faxed. [facility] notified, scheduling to go through patient's daughter. Date Signed: 08/27/2018 12:11 PM Electronically Signed By:Radha Wilder RN [facility] Progress Note CM Note CM Note Notes: Spoke with Kassie from [facility], they don't have a RN/PT available until Thursday the . CM spoke with hospitalist who approved a delayed start of care, patient and dtr made aware. DC Plan: Homecare/ [facility] (RN/PT) Date Signed: 08/27/2018 02:00 PM Electronically Signed By:Radha Wilder RN Intervention Information Intervention Type:*Incorrect Registration Date of Service:08/25/2018 10:26 AM Patient Type:Inpatient Staff Member:Torie Wilde Hours: Discipline: Severity: Comment:
== END 2018-08-27 14:45 | disposition home health service (06) ==
LOC: INTOOBSV 17:56 → F3E 18:43
PROVIDERS: ADMIT Internal Medicine; ATTEND Internal Medicine
DX: K29.70 Gastritis, unspecified, without bleeding (principal); K26.9 Duodenal ulcer, unspecified as acute or chronic, without hemorrhage or perforation; E86.9 Volume depletion, unspecified
CPT/HCPCS: 43239; 74176; 88305; 93005; 96361; 96374; 96375; 96376; 97116; 97162; 97165; 97530; 97535; 99285; G0378; G8978; G8979; G8987; G8988; J2704; J3010; 82435-PO; 82565-PO; 82947-PO; 84132-PO; 84295-PO; 84484-PO; 84520-PO; 85014-PO

== ENCOUNTER → 2018-12-10 | Outpatient (CLI) | payer OTHER | LOC: FIMAGING 10:26 | PROVIDERS: ATTEND Physical Medicine & Rehabilitation | DX: M50.321 Other cervical disc degeneration at C4-C5 level (principal); M47.892 Other spondylosis, cervical region ==

== ENCOUNTER 2019-04-06 08:10 | Day surgery (SDC) | payer OTHER | END 2019-04-06 12:30 | disposition home or self-care (01) | LOC: FSGY 08:10 ==